=== PATIENT | male | born 1985 | race Caucasian/White ===

== ENCOUNTER 2023-02-05 19:21 | Emergency (ER) | payer OTHER, SELFPAY ==
--- NOTE | ~2023-02-05 | CT_ITS ---
EXAMINATION: CT HEAD WITHOUT CONTRAST CLINICAL INFORMATION: Headache COMPARISON: None available. TECHNIQUE: Contiguous axial imaging was performed from the skull base to vertex without intravenous administration of contrast. This CT examination was performed using dose optimization techniques as appropriate, variously including the following: *Automated exposure control *Adjustment of mA and/or kV according to patient size (this includes techniques or standardized protocols for targeted exams where dose is matched to indication/reason for exam; i.e. extremities or head) *Use of iterative reconstruction technique DLP: 598 mGy-cm FINDINGS: There is no evidence of an extra axial collection. There is no evidence of intra-axial or extra-axial hemorrhage. Ventricles and extra-axial CSF spaces are appropriate. Pan-white matter differentiation is normal. No mass, mass effect or infarct. There is pineal gland calcification. No skull fracture. There is left frontal and ethmoid sinus disease. CT/CT head/brain wo IV con IMPRESSION: No acute intracranial findings. Left frontal and ethmoid sinus disease.
[2023-02-05 19:30] VITALS: BP 134/69; PULSE 70; RESP 16; TEMP 36.3; O2SAT 98; BMI 24.3
--- NOTE | 2023-02-05 19:32 | ED.GENADULT ---
[facility] - General Adult General Chief complaint: Headache Stated complaint: Headache 6 days Time Seen by Provider: 02/05/23 19:32 Source: patient, family and RN notes reviewed Mode of arrival: ambulatory Limitations: no limitations History of Present Illness HPI narrative: This is a 37-year-old male, with history of asthma, presenting to the emergency department with complaints of headache x6 days. Patient states that over the last 6 days he has had intermittent headaches. He states that the headache is frontal in worsens with leaning forward. He states that he was sick several weeks ago with nasal congestion and a cough. He states that his symptoms improved. He has been taking ibuprofen and Excedrin without any relief. He denies history of headaches in the past. Denies any vision changes, nausea, vomiting, or diarrhea. No other complaints or concerns at this time. MD complaint: Headache Onset (ago): day(s) Related Data Previous Rx's Medication Instructions Recorded amoxicillin 875 mg-potassium 1 tab PO BID 7 days #13 tabs 02/05/23 clavulanate 125 mg tablet Allergies Allergy/AdvReac Type Severity Reaction Status Date / Time No Known Allergies Allergy Unverified 12/10/19 15:40 [No Known Allergies*] Review of Systems Review of Systems: Yes all other systems are reviewed and are negative Constitutional: Constitutional: Reports as per [facility] Social History Social History Smoked in Last 30 Days: No Advance Directives: No Advance Directives Information Provided: No Physical Exam ED Vital Signs: Vital Signs - 24 hr 02/05/23 19:30 Temperature 97.3 F Pulse Rate 70 Respiratory Rate 16 Blood Pressure 134/69 Pulse Oximetry 98 Oxygen Delivery Method Room Air BMI result Body Mass Index 24.3 Const General: cooperative, comfortable and no acute distress Orientation/consciousness: patient oriented x3 Limitations: no limitations HENMT Other: Mild tenderness palpation along the ethmoid sinuses, no frontal or maxillary sinus tenderness. Head: Yes normal to inspection, Yes normocephalic and Yes atraumatic Ears: hearing grossly normal bilaterally and TM's normal bilaterally General nose exam: Normal external nose present and Normal nasal mucous membranes and turbinates present Face and sinus: Yes normal facial exam Mouth: Normal oral and palatal mucosa present, oropharynx normal and moist mucous membranes Throat: Yes posterior oropharynx normal Eyes General: appearance normal, both eyes and all related structures Eyelids: Yes eyelids normal Conjunctivae: conjunctivae normal Sclerae: sclerae normal Pupils: Equal, round and reactive pupils present EOM: EOMs intact bilaterally Neck Neck: Yes normal visual inspection, Yes full ROM and Yes no lymphadenopathy Lymphatic: no lymphadenopathy noted Chest Chest palpation & inspection: normal inspection of the chest Resp Effort & Inspection: normal respiratory effort and able to speak in complete sentences Auscultation: clear to auscultation bilaterally, no crackles, no rales, no rhonchi and no wheezes Cardio Rate: regular rate Rhythm: regular rhythm Heart sounds: S1 normal heart sound present and S2 normal heart sound present GI Inspection: Yes normal to inspection Skin General skin exam: no rashes or lesions noted Trauma: no lacerations or abrasions Wounds: no wounds Neuro General: patient oriented x3, moves all extremities, no focal motor deficits and CN's II-XI intact bilaterally Cranial nerves: Yes Equal, round and reactive pupils present Cognition (Neuro): normal cognition Gait exam (Neuro): Normal gait present Motor exam (neuro): 5/5 motor strength present throughout, Pronator motor function not present and no tremor noted Coordination: [id number] test normal Romberg Test: Negative Extrem General: Yes normal to inspection Right upper extremity: normal to inspection Left upper extremity: normal to inspection Right lower extremity: normal to inspection Left lower extremity: normal to inspection NIH Stroke Scale Internal: Initial- Upon Arrival Time: 22:37 Level of Consciousness: Alert Level of Consciousness Questions: Answers both questions correctly Level of Consciousness Commands: Performs both tasks correctly Best Gaze: Normal Visual: No visual loss Facial Palsy: Normal Motor Arm (Right): No drift Motor Arm (Left): No drift Motor Leg (Right): No drift Motor Leg (Left): No drift Limb Ataxia: Absent Sensory: Normal Best Language: No aphasia Dysarthia: Normal Extinction and Inattention: No abnormality Score: 0 Course Course Course Narrative: This is an RME: Additional HPI, ROS, PE not included below will be deferred to primary provider. 37-year-old male presents with headache, described as a constant pain at this time has been present for the past 60 days progressively worsening he has had headaches in the past however this feels completely different also reports pressure behind left eye. Reports he came in today because headache not responding to [id number] pain meds. Plan at this time basic labs, CT of head. As this feels like gait atypical headache Medications Administered Discontinued Medications Generic Name Dose Route Start Last Admin Trade Name Addy PRN Reason Stop Dose Admin Amoxicillin/Clavulanate Potassium 875 mg 02/05/23 22:27 02/05/23 22:39 Amoxicillin/Potassium Clav 875 Mg Tablet PO 02/05/23 22:28 875 mg ONCE ONE Administration Diphenhydramine HCl 50 mg 02/05/23 19:32 02/05/23 20:47 Diphenhydramine Hcl 25 Mg Capsule PO 02/05/23 19:33 50 mg ONCE ONE Administration Ketorolac Tromethamine 30 mg 02/05/23 19:32 02/05/23 20:47 Ketorolac Tromethamine 15 Mg/Ml Vial IM 02/05/23 19:33 30 mg ONCE ONE Administration Metoclopramide HCl 10 mg 02/05/23 19:32 02/05/23 20:47 Metoclopramide Hcl 10 Mg Tablet PO 02/05/23 19:33 10 mg ONCE ONE Administration Medical Decision Making Medical Decision Making [facility] Narrative: This is a 37-year-old male presenting to the emergency department for evaluation of headache times 6 days. On arrival, vital signs within normal limits. Labs, head CT was ordered on triage. Medications were also ordered including Benadryl, Reglan, and Toradol prior to my assessment. During my assessment, patient states that he is feeling much better after being medicated. CT scan revealing evidence of sinus disease. Patient reporting worsening headache with leaning forward. This is consistent with an acute sinusitis. He had recent URI like symptoms 2 weeks ago. Given circumstances and fully neurologically intact. We will treat as a sinus infection with Augmentin. Patient given his 1st dose in the emergency department today. Patient given return precautions. Patient understands and agrees with plan. Patient stable for discharge. Differential Diagnosis Differential Diagnoses: The differential diagnosis associated with the presentation includes Sinusitis, ICH-unlikely, migraine, tension headache, cluster headache Admission/Observation Consideration of admission/observation: Escalation of care including admission/observation considered Escalation of care including an admission/observation was considered however given his workup today, will treat outpatient acute sinusitis. Lab Data [facility] Lab Attestation statement: I reviewed the patient's lab results. Leukocytosis at 13.8, with slight left shift, chemistry within normal limits. 02/05/23 19:38 02/05/23 19:38 Labs: Lab Results 02/05/23 Range/Units 19:38 WBC 13.8 H (4.8-10.8) X10*3/uL RBC 4.77 (4.60-5.80) X10*6/uL Hgb 14.0 (14.0-18.0) g/dl Hct 40.2 L (42.0-52.0) % MCV 84.3 (80.0-98.0) fL MCH 29.4 (27.0-33.0) pg MCHC 34.8 (31.0-36.0) g/dl RDW 12.4 (11.0-16.0) % Plt Count 323 (160-400) X10*3/uL MPV 8.9 L (9.4-12.4) fL Immature Gran % (Auto) 0.2 (0.0-0.4) % Neut % (Auto) 70.0 (45-73) % Lymph % (Auto) 20.4 (20-40) % [place] % (Auto) 7.4 (2-11) % Eos % (Auto) 1.4 (0-4) % Baso % (Auto) 0.6 (0-2) % Lymph # (Auto) 2.8 (1.2-4.9) X10*3/uL [place] # (Auto) 1.0 (0.1-1.2) X10*3/uL Eos # (Auto) 0.2 (0.0-0.4) X10*3/uL Baso # (Auto) 0.1 (0.0-0.2) X10*3/uL Abs Immat Gran (auto) 0.03 (0.00-0.03) X10*3/uL Absolute Neuts (auto) 9.7 H (2.0-8.3) x10*3/uL Absolute Nucleated RBC 0.000 (0.0-0.012) X10*3/uL Nucleated RBC % (auto) 0.0 (0.0-0.2) /100WBC ESR 5 (0-15) MM/HR Sodium 141 (135-145) mmol/L Potassium 3.7 (3.3-5.1) mmol/L Chloride 102 (96-108) mmol/L Carbon Dioxide 30 H (22-29) mmol/L Anion Gap 13 (12-20) BUN 10 (9-16) mg/dL Creatinine 1.16 (0.5-1.4) mg/dL Estim Creat Clear Calc 83.0 Estimated GFR > 60 Random Glucose 145 H (60-115) mg/dL Calcium 9.9 (8.4-10.2) mg/dL Total Bilirubin 0.5 (0.0-1.0) mg/dL AST 19 (5-37) U/L ALT 17 (0-40) U/L Alkaline Phosphatase 91 (39-117) U/L C-Reactive Protein 0.50 (< or = 0.50) mg/dL Total Protein 7.5 (6.5-8.0) g/dL Albumin 4.6 (3.5-5.0) g/dL Radiology Impression Discussion of test interpretation with radiology: I have reviewed the radiologist's reading. Radiologist Impression: CLINICAL INFORMATION: Headache COMPARISON: None available. TECHNIQUE: Contiguous axial imaging was performed from the skull base to vertex without intravenous administration of contrast. This CT examination was performed using dose optimization techniques as appropriate, variously including the following: *Automated exposure control *Adjustment of mA and/or kV according to patient size (this includes techniques or standardized protocols for targeted exams where dose is matched to indication/reason for exam; i.e. extremities or head) *Use of iterative reconstruction technique DLP: 598 mGy-cm FINDINGS: There is no evidence of an extra axial collection. There is no evidence of intra-axial or extra-axial hemorrhage. Ventricles and extra-axial CSF spaces are appropriate. Pan-white matter differentiation is normal. No mass, mass effect or infarct. There is pineal gland calcification. No skull fracture. There is left frontal and ethmoid sinus disease. CT/CT head/brain wo IV con IMPRESSION: No acute intracranial findings. Left frontal and ethmoid sinus disease. Dictated By: Lynette Her MD Signed By: <Electronically юлия Critical Care Time Critical Care Time Critical Care Time: Yes Total Critical Care Time: 35 Attestation: I have personally provided critical care time exclusive of time spent on separately billable procedures. Time includes review of lab data, radiology results, discussion with consultants, and monitoring for potential decompensation. Intervention performed as documented. Discharge Plan Discharge Clinical Impression: Sinusitis, Headache Patient Disposition: Home, Self-Care Instructions: Sinusitis (ED) Additional Instructions: You presented to the emergency department due to a headache. You received Benadryl, Reglan, and Toradol which provided you with good relief. Your CT scan shows evidence of left frontal and ethmoid sinus disease. We are treating you with an antibiotic. Your given your 1st dose in the emergency department today. Please finish the entire course even if you are feeling better. Drink plenty of fluids get plenty of rest. You may take Tylenol or Motrin as needed. Please follow-up with your primary care physician, call tomorrow to make an appointment. If any new or worsening symptoms occur including but not limited to worsening headaches, fevers, changes to mentation, please return for re-evaluation. Prescriptions: New amoxicillin-pot clavulanate 875-125 mg tablet 1 tab PO BID 7 Days Qty: 13 0RF Interventions: ED Discharge Assessment Last Done: 02/05/23 22:43 Discharge Date/Time: 02/05/23 22:44
[2023-02-05 19:43] LABS: MANUAL DIFF FLAG NO
[2023-02-05 19:46] LABS: Basophils Absolute Auto 0.1 X10*3/uL (0.0-0.2); Basophils Percent Auto 0.6 % (0-2); Eosinophils Absolute Auto 0.2 X10*3/uL (0.0-0.4); Eosinophils Percent Auto 1.4 % (0-4); Hematocrit 40.2 % (42.0-52.0); Imm Gran Abs Auto 0.03 X10*3/uL (0.00-0.03); Imm Gran Pct Auto 0.2 % (0.0-0.4); Lymphocytes Absolute Auto 2.8 X10*3/uL (1.2-4.9); Lymphocytes Percent Auto 20.4 % (20-40); Mean Corpuscular HGB Conc 34.8 g/dl (31.0-36.0); Mean Corpuscular Hemoglobin 29.4 pg (27.0-33.0); Mean Corpuscular Volume 84.3 fL (80.0-98.0); Mean Platelet Volume 8.9 fL (9.4-12.4); Monocytes Percent Auto 7.4 % (2-11); Neutrophils Absolute Auto 9.7 x10*3/uL (2.0-8.3); Platelet Count 323 X10*3/uL (160-400); Red Blood Count 4.77 X10*6/uL (4.60-5.80); Red Cell Distribution Width 12.4 % (11.0-16.0); White Blood Count 13.8 X10*3/uL (4.8-10.8)
[2023-02-05 20:00] LABS: Alanine Aminotransferase 17 U/L (0-40); Albumin Level 4.6 g/dL (3.5-5.0); Alkaline Phosphatase 91 U/L (39-117); Anion Gap 13 (12-20); Aspartate Amino Transferase 19 U/L (5-37); Bilirubin Total 0.5 mg/dL (0.0-1.0); Blood Urea Nitrogen 10 mg/dL (9-16); Calcium 9.9 mg/dL (8.4-10.2); Carbon Dioxide 30 mmol/L (22-29); Chloride 102 mmol/L (96-108); Estimated Glomerular Filt Rate > 60; Glucose Random 145 mg/dL (60-115); Potassium 3.7 mmol/L (3.3-5.1); Sodium 141 mmol/L (135-145); Total Protein 7.5 g/dL (6.5-8.0)
[2023-02-05 20:23] LABS: Erythrocyte Sedimentation Rate 5 MM/HR (0-15)
[2023-02-05] MEDS: diphenhydrAMINE HCL 25 MG CAPSULE 50 MG PO (20:47)
[2023-02-05] MEDS: Metoclopramide HCl 10 MG TABLET PO (20:47)
[2023-02-05] MEDS: Ketorolac Tromethamine 15 MG/ML VIAL 30 MG IM (20:47)
--- NOTE | 2023-02-05 20:48 | PC.NURSE ---
pt brought back to exam room sts that headache has not improved since triage. pt placed on 10L 02 via NC per KATHARINA Trivedi. pt to rec benadryl, reglan, and toradol- awaiting CT result- no neuro deficits noted, ambulating without difficulty speaking in full complete sentances
[2023-02-05] MEDS: Amoxicillin/Potassium Clav 875 MG TABLET PO (22:39)
== END 2023-02-05 22:44 | disposition home or self-care (01) ==
PROVIDERS: Physician Assistant; Emergency Provider Emergency Medicine Emergency Medical Services; PCP Internal Medicine
DX: J32.8 Other chronic sinusitis (principal); R51.9 Headache, unspecified
CPT/HCPCS: 36415; 70450; 80053; 85025; 85652; 86140; 96372; 99284; J1885